=== PATIENT | male | born 1975 | race Caucasian/White ===

== ENCOUNTER 2020-06-24 10:01 | Observation (INO) ==
[2020-06-24] MEDS ORDERED: Calcium Gluconate 1gm/50mL 1 GM/50 ML BAG IVPB ONE ×2 (10:29→12:22)
[2020-06-24] MEDS ORDERED: Insulin Regular, Human 100 UNIT/ML SUBQ ONE (10:30)
[2020-06-24] MEDS ORDERED: Albuterol Neb 7.5 MG, Sodium Chloride for inhalation 12 ML IH ONE (10:30)
[2020-06-24] MEDS ORDERED: *HR* Dextrose 50 % in Water (Vial) 50 ML VIAL IVP ONE (10:45)
[2020-06-24 11:03] LABS: Basophils % 0.3 %; Eosinophils # 0.1 K/mcL (0.0-0.6); Eosinophils % 3.5 %; Hematocrit 28.2 % (37.5-50.1); Hemoglobin 9.4 g/dL (12.9-16.9); Immature Granulocytes % 0.3 % (0-4); Lymphocytes # 0.8 K/mcL (0.6-4.6); Lymphocytes % 26.8 %; Mean Corpuscular HGB Conc 33.3 g/dL (31.6-35.5); Mean Corpuscular Hemoglobin 30.5 pg (28.0-33.3); Mean Corpuscular Volume 91.6 fL (83.0-100.0); Monocytes # 0.2 K/mcL (0.0-1.3); Platelet Count 141 K/mcL (140-400); Red Blood Count 3.08 M/mcL (4.19-5.50); Red Cell Distribution Width 12.7 % (11.5-14.5); Segmented Neutrophils % 62.1 %; White Blood Count 3.1 K/mcL (4.3-11.1)
[2020-06-24 11:16] LABS: Prothrombin Time 11.5 Seconds (9.4-12.1)
[2020-06-24 11:19] LABS: Activated Partial Thrombo Time 35.9 Seconds (26.0-36.0)
[2020-06-24 11:24] LABS: Alanine Aminotransferase 11 Units/L (7-52); Albumin 3.9 g/dL (3.5-5.7); Albumin/Globulin Ratio 1.5 (1.1-2.2); Alkaline Phosphatase 64 Units/L (34-104); Aspartate Amino Transferase 11 Units/L (13-39); BUN/Creatinine Ratio 12 (6-26); Bilirubin,Direct 0.1 mg/dL (0.0-0.2); Bilirubin,Indirect 0.6 mg/dL (0.0-1.0); Bilirubin,Total 0.7 mg/dL (0.3-1.0); Blood Urea Nitrogen 34 mg/dL (6-20); Calcium 8.2 mg/dL (8.6-10.3); Carbon Dioxide 17 mEq/L (23-29); Chloride 115 mEq/L (98-107); Globulin 2.6 g/dL (2.4-3.5); Glucose 132 mg/dL (70-105); Magnesium 1.7 mg/dL (1.6-2.6); Osmolality,Calculated 289 (280-300); Potassium 6.4 mEq/L (3.5-5.1); Sodium 135 mEq/L (136-145); Total Protein 6.5 g/dL (6.4-8.9); Troponin I < 0.03 ng/mL (< 0.04); eGFR For African Americans 30 (> 60); eGFR For Non-African Americans 25 (> 60)
[2020-06-24] MEDS ORDERED: 0.9 % Sodium Chloride 1,000 ML IVC ONE ×2 (11:35→13:29)
[2020-06-24] MEDS ORDERED: Sodium Bicarbonate 150 MEQ in Water for inj. (sterile) 1,000 ML IVC SCH (12:05)
[2020-06-24] MEDS ORDERED: SODIUM ZIRCONIUM CYCLOSILICATE 5 GM POWD.PACK PO ONE (12:09)
[2020-06-24 12:13] LABS: Bacteria,Urine Few per hpf (None-Few); Bilirubin,Urine Negative (Negative); Blood,Urine Small (Negative); Clarity,Urine Clear (Clear); Color,Urine Light-Yellow (Yellow); Glucose,Urine (UA) 300 mg/dL (Normal); Hyaline Casts,Urine Few per lpf (None Seen); Ketones,Urine Negative (Negative); Leukocyte Esterase,Urine Negative (Negative); Nitrite,Urine Negative (Negative); Protein,Urine 100 mg/dL (Neg-Trace); RBC,Urine 0-3 per hpf (0-3); Specific Gravity,Urine 1.016 (1.010-1.025); Squamous Epithelial Cell,Urine Few per hpf (None-Few); Urobilinogen,Urine Normal (Normal); WBC,Urine 0-3 per hpf (0-3)
[2020-06-24] MEDS ORDERED: Furosemide 40 MG/4 ML VIAL IVP ONE (12:22)
[2020-06-24 12:55] LABS: Potassium 4.7 mEq/L (3.5-5.1)
[2020-06-24] MEDS ORDERED: Melatonin 3 MG TABLET PO PRN (13:03)
[2020-06-24] MEDS ORDERED: Ondansetron 4 MG/2 ML VIAL IVP PRN (13:03)
[2020-06-24] MEDS ORDERED: Acetaminophen 325 MG TABLET PO PRN (13:03)
[2020-06-24 14:04] LABS: Phosphorous 2.6 mg/dL (2.7-4.5); Uric Acid 6.3 mg/dL (2.3-7.6)
[2020-06-24] MEDS: amLODIPine 5 MG TABLET PO SCH (16:18)
[2020-06-24 16:49] LABS: Calcium 8.1 mg/dL (8.6-10.3); Potassium 4.8 mEq/L (3.5-5.1)
[2020-06-24 17:39] LABS: Sodium, Urine 104.6 mEq/L
[2020-06-25 01:22] LABS: Hematocrit 24.2 % (37.5-50.1); Hemoglobin 8.3 g/dL (12.9-16.9); Mean Corpuscular HGB Conc 34.3 g/dL (31.6-35.5); Mean Corpuscular Hemoglobin 31.3 pg (28.0-33.3); Mean Corpuscular Volume 91.3 fL (83.0-100.0); Mean Platelet Volume 10.2 fL (9.4-12.4); Platelet Count 123 K/mcL (140-400); Red Blood Count 2.65 M/mcL (4.19-5.50); Red Cell Distribution Width 12.9 % (11.5-14.5); White Blood Count 2.9 K/mcL (4.3-11.1)
[2020-06-25 01:44] LABS: Albumin 3.5 g/dL (3.5-5.7); Albumin/Globulin Ratio 1.6 (1.1-2.2); Bilirubin,Total 0.7 mg/dL (0.3-1.0); Calcium 7.7 mg/dL (8.6-10.3); Globulin 2.2 g/dL (2.4-3.5); Magnesium 1.4 mg/dL (1.6-2.6); Potassium 4.5 mEq/L (3.5-5.1); Total Protein 5.7 g/dL (6.4-8.9)
[2020-06-25] MEDS: 0.9 % Sodium Chloride 1,000 ML IVC SCH ×2 (09:00→20:02)
[2020-06-25] MEDS: amLODIPine 5 MG TABLET PO SCH (09:00)
[2020-06-26 06:11] LABS: Basophils % 0.7 %; Eosinophils # 0.1 K/mcL (0.0-0.6); Eosinophils % 3.3 %; Hematocrit 24.8 % (37.5-50.1); Hemoglobin 8.4 g/dL (12.9-16.9); Immature Granulocytes % 0.3 % (0-4); Lymphocytes % 33.6 %; Mean Corpuscular HGB Conc 33.9 g/dL (31.6-35.5); Mean Corpuscular Hemoglobin 30.8 pg (28.0-33.3); Mean Corpuscular Volume 90.8 fL (83.0-100.0); Mean Platelet Volume 10.1 fL (9.4-12.4); Monocytes # 0.3 K/mcL (0.0-1.3); Monocytes % 8.1 %; Neutrophils # 1.7 K/mcL (1.6-8.9); Platelet Count 135 K/mcL (140-400); Red Blood Count 2.73 M/mcL (4.19-5.50); Red Cell Distribution Width 12.6 % (11.5-14.5); White Blood Count 3.1 K/mcL (4.3-11.1)
[2020-06-26 06:29] LABS: Potassium 5.2 mEq/L (3.5-5.1)
[2020-06-26] MEDS: amLODIPine 5 MG TABLET PO SCH (08:19)
[2020-06-26 12:21] LABS: % Iron Saturation 23 % (20-55); Iron 59 mcg/dL (65-175); Transferrin 185 mg/dL (203-362)
[2020-06-26 12:39] LABS: Ferritin 184 ng/mL (20-250)
[2020-06-26] MEDS: *HR* Heparin 5,000 UNIT/ML VIAL SQ SCH ×2 (12:46→21:03)
[2020-06-26] MEDS: Metoprolol XL (24 HR) Succ 25 MG TAB.ER.24H PO SCH (16:12)
[2020-06-27 05:07] LABS: Basophils % 0.6 %; Eosinophils # 0.2 K/mcL (0.0-0.6); Eosinophils % 4.5 %; Hematocrit 26.6 % (37.5-50.1); Hemoglobin 9.3 g/dL (12.9-16.9); Immature Granulocytes % 0.3 % (0-4); Lymphocytes # 0.9 K/mcL (0.6-4.6); Lymphocytes % 26.2 %; Mean Corpuscular Hemoglobin 31.7 pg (28.0-33.3); Mean Corpuscular Volume 90.8 fL (83.0-100.0); Monocytes # 0.3 K/mcL (0.0-1.3); Monocytes % 7.8 %; Platelet Count 141 K/mcL (140-400); Red Blood Count 2.93 M/mcL (4.19-5.50); Red Cell Distribution Width 12.5 % (11.5-14.5); Segmented Neutrophils % 60.6 %; White Blood Count 3.3 K/mcL (4.3-11.1)
[2020-06-27 05:37] LABS: Calcium 8.6 mg/dL (8.6-10.3)
[2020-06-27 07:04] VITALS: BP 180/95
[2020-06-27] MEDS: *HR* Heparin 5,000 UNIT/ML VIAL SQ SCH (07:08)
[2020-06-27] MEDS: Metoprolol XL (24 HR) Succ 25 MG TAB.ER.24H PO SCH (08:24)
[2020-06-27] MEDS: amLODIPine 5 MG TABLET PO SCH (08:24)
[2020-06-27] MEDS: carvediloL 6.25 MG TABLET PO SCH (10:13)
[2020-06-27 11:19] LABS: Protein/Creatinine Ratio,Urine 1.45 mg/mg (0.00-0.20)
== END 2020-06-27 10:35 | disposition home or self-care (01) ==
LOC: 2NNU 10:01 → EMEROOARM 10:01 → 2NNU 15:49 → 2ANU 06-25 16:20
PROVIDERS: ADMIT Internal Medicine; ATTEND Internal Medicine

== ENCOUNTER 2020-09-13 18:59 | Inpatient (IN) ==
[2020-09-13] MEDS ORDERED: Ipratropium/Albuterol Neb 3 ML IH ONE (19:17)
[2020-09-13 19:37] LABS: Basophils % 0.4 %; Hematocrit 20.4 % (37.5-50.1); Hemoglobin 6.8 g/dL (12.9-16.9); Immature Granulocytes % 0.4 % (0-4); Lymphocytes # 0.4 K/mcL (0.6-4.6); Lymphocytes % 14.7 %; Mean Corpuscular HGB Conc 33.3 g/dL (31.6-35.5); Mean Corpuscular Hemoglobin 30.9 pg (28.0-33.3); Mean Corpuscular Volume 92.7 fL (83.0-100.0); Mean Platelet Volume 10.2 fL (9.4-12.4); Monocytes # 0.2 K/mcL (0.0-1.3); Monocytes % 7.9 %; Platelet Count 111 K/mcL (140-400); Red Cell Distribution Width 12.7 % (11.5-14.5); Segmented Neutrophils % 76.6 %; White Blood Count 2.7 K/mcL (4.3-11.1)
[2020-09-13 19:59] LABS: Albumin 3.9 g/dL (3.5-5.7); Albumin/Globulin Ratio 1.3 (1.1-2.2); Bilirubin,Direct 0.2 mg/dL (0.0-0.2); Bilirubin,Indirect 0.9 mg/dL (0.0-1.0); Bilirubin,Total 1.1 mg/dL (0.3-1.0); Calcium 8.3 mg/dL (8.6-10.3); Globulin 2.9 g/dL (2.4-3.5); Potassium 4.3 mEq/L (3.5-5.1); Total Protein 6.8 g/dL (6.4-8.9)
[2020-09-13 20:03] LABS: Troponin I 0.29 ng/mL (< 0.04)
[2020-09-13] MEDS ORDERED: Aspirin 81 MG TAB.CHEW PO STA (20:10)
[2020-09-13] MEDS ORDERED: Furosemide 20 MG/2 ML VIAL IVP ONE (20:14)
[2020-09-13] MEDS ORDERED: Ondansetron 4 MG/2 ML VIAL IVP PRN (21:29)
[2020-09-13] MEDS ORDERED: Naloxone 0.4 MG/ML INJ IVP PRN (21:29)
[2020-09-13] MEDS ORDERED: Acetaminophen 325 MG TABLET PO PRN (21:29)
[2020-09-13] MEDS ORDERED: Perflutren Lipid Microsphere 1.3 ML in 0.9 % Sodium Chloride 8.7 ML IVP PRN (21:32)
[2020-09-13 21:41] LABS: Adenovirus Not Detected (Not Detect); Bordetella Pertussis Not Detected (Not Detect); Chlamydophila pneumoniae Not Detected (Not Detect); Coronavirus 229E Not Detected (Not Detect); Coronavirus HKU1 Not Detected (Not Detect); Coronavirus NL63 Not Detected (Not Detect); Coronavirus OC43 Not Detected (Not Detect); Human Metapneumovirus Not Detected (Not Detect); Human Rhinovirus/Enterovirus Not Detected (Not Detect); Influenza A Subtype 2009 H1 Not Detected (Not Detect); Influenza B Not Detected (Not Detect); Mycoplasma pneumoniae Not Detected (Not Detect); Parainfluenza Virus 1 Not Detected (Not Detect); Parainfluenza Virus 2 Not Detected (Not Detect); Parainfluenza Virus 3 DETECTED (Not Detect); Parainfluenza Virus 4 Not Detected (Not Detect); Respiratory Syncytial Virus Not Detected (Not Detect); SARS-CoV-2 Not Detected (Not Detect)
[2020-09-13] MEDS ORDERED: Ipratropium/Albuterol Neb 3 ML IH PRN (22:02)
[2020-09-13] MEDS ORDERED: Dextrose Gel 15 GM/37.5 ML TUBE PO PRN ×2 (22:07)
[2020-09-13] MEDS ORDERED: *HR* Dextrose 50 % in Water (Vial) 50 ML VIAL IVP PRN (22:07)
[2020-09-13] MEDS ORDERED: D5% in Water 1,000 ML IVC PRN (22:07)
[2020-09-13] MEDS ORDERED: 0.9 % Sodium Chloride 250 ML ONE (22:41)
[2020-09-13] MEDS: Insulin LISPRO 300 UNITS/3 ML VIAL SUBQ SCH (23:17)
[2020-09-13] MEDS: Azithromycin 500 MG in 0.9 % Sodium Chloride 250 ML IVPB SCH (23:18)
[2020-09-13] MEDS: cefTRIAXone 1,000 MG in 0.9 % Sodium Chloride Mini Bag 100 ML IVPB SCH (23:18)
[2020-09-13] MEDS: carvediloL 6.25 MG TABLET PO SCH (23:44)
[2020-09-13] MEDS: amLODIPine 5 MG TABLET PO SCH (23:44)
[2020-09-14 00:20] LABS: Potassium,Urine 25.2 mEq/L; Sodium, Urine 88.9 mEq/L
[2020-09-14 00:29] LABS: Bacteria,Urine Few per hpf (None-Few); Bilirubin,Urine Negative (Negative); Blood,Urine Small (Negative); Clarity,Urine Clear (Clear); Color,Urine Colorless (Yellow); Glucose,Urine (UA) 50 mg/dL (Normal); Hyaline Casts,Urine Few per lpf (None Seen); Ketones,Urine Negative (Negative); Leukocyte Esterase,Urine Negative (Negative); Mucus,Urine Few per lpf (None-Few); Nitrite,Urine Negative (Negative); Protein,Urine 70 mg/dL (Neg-Trace); RBC,Urine 0-3 per hpf (0-3); Specific Gravity,Urine 1.012 (1.010-1.025); Squamous Epithelial Cell,Urine Few per hpf (None-Few); Urobilinogen,Urine Normal (Normal); WBC,Urine 0-3 per hpf (0-3)
[2020-09-14 04:13] LABS: Calcium 7.9 mg/dL (8.6-10.3); Magnesium 1.7 mg/dL (1.6-2.6); Phosphorous 3.4 mg/dL (2.7-4.5); Potassium 3.7 mEq/L (3.5-5.1)
[2020-09-14 04:15] LABS: Hematocrit 19.4 % (37.5-50.1); Hemoglobin 6.6 g/dL (12.9-16.9); Immature Granulocytes % 0.4 % (0-4); Lymphocytes # 0.6 K/mcL (0.6-4.6); Lymphocytes % 26.8 %; Mean Corpuscular Hemoglobin 31.6 pg (28.0-33.3); Mean Corpuscular Volume 92.8 fL (83.0-100.0); Mean Platelet Volume 10.9 fL (9.4-12.4); Monocytes # 0.2 K/mcL (0.0-1.3); Monocytes % 10.4 %; Neutrophils # 1.4 K/mcL (1.6-8.9); Platelet Count 100 K/mcL (140-400); Red Blood Count 2.09 M/mcL (4.19-5.50); Red Cell Distribution Width 13.2 % (11.5-14.5); Segmented Neutrophils % 62.4 %; White Blood Count 2.3 K/mcL (4.3-11.1)
[2020-09-14 04:18] LABS: INR 1.3; Prothrombin Time 14.6 Seconds (9.4-12.1)
[2020-09-14 04:26] LABS: Thyroid Stimulating Hormone 1.126 mcIU/mL (0.340-5.600)
[2020-09-14] MEDS ORDERED: 0.9 % Sodium Chloride 250 ML ONE (05:26)
[2020-09-14] MEDS ORDERED: *HR* Heparin 5,000 UNIT/ML VIAL SQ SCH (06:00)
[2020-09-14] MEDS: cefTRIAXone 1,000 MG in 0.9 % Sodium Chloride Mini Bag 100 ML IVPB SCH (08:06)
[2020-09-14] MEDS: Azithromycin 500 MG in 0.9 % Sodium Chloride 250 ML IVPB SCH (08:06)
[2020-09-14] MEDS: carvediloL 6.25 MG TABLET PO SCH ×2 (08:07→16:55)
[2020-09-14] MEDS: Insulin LISPRO 300 UNITS/3 ML VIAL SUBQ SCH ×3 (08:07→16:37)
[2020-09-14] MEDS: amLODIPine 5 MG TABLET PO SCH (08:07)
[2020-09-14 10:37] LABS: Hemoglobin 7.7 g/dL (12.9-16.9)
[2020-09-14 11:00] LABS: Troponin I 0.37 ng/mL (< 0.04)
[2020-09-14] MEDS ORDERED: Furosemide 40 MG/4 ML VIAL IVP ONE (12:27)
[2020-09-14 14:19] LABS: Uric Acid 9.9 mg/dL (2.3-7.6)
[2020-09-14 17:54] LABS: Creatinine,Urine 52 mg/dL
[2020-09-15 07:10] LABS: Basophils % 0.4 %; Eosinophils # 0.1 K/mcL (0.0-0.6); Eosinophils % 2.9 %; Hematocrit 24.8 % (37.5-50.1); Hemoglobin 8.4 g/dL (12.9-16.9); Immature Granulocytes % 0.7 % (0-4); Lymphocytes # 0.7 K/mcL (0.6-4.6); Lymphocytes % 24.6 %; Mean Corpuscular HGB Conc 33.9 g/dL (31.6-35.5); Mean Corpuscular Hemoglobin 30.3 pg (28.0-33.3); Mean Corpuscular Volume 89.5 fL (83.0-100.0); Mean Platelet Volume 10.6 fL (9.4-12.4); Monocytes # 0.3 K/mcL (0.0-1.3); Neutrophils # 1.7 K/mcL (1.6-8.9); Platelet Count 125 K/mcL (140-400); Red Blood Count 2.77 M/mcL (4.19-5.50); Red Cell Distribution Width 13.6 % (11.5-14.5); Segmented Neutrophils % 61.4 %; White Blood Count 2.8 K/mcL (4.3-11.1)
[2020-09-15] MEDS: carvediloL 6.25 MG TABLET PO SCH (07:46)
[2020-09-15] MEDS: amLODIPine 5 MG TABLET PO SCH (07:47)
[2020-09-15] MEDS: cefTRIAXone 1,000 MG in 0.9 % Sodium Chloride Mini Bag 100 ML IVPB SCH (07:47)
[2020-09-15] MEDS: Azithromycin 500 MG in 0.9 % Sodium Chloride 250 ML IVPB SCH (07:47)
[2020-09-15] MEDS: Insulin LISPRO 300 UNITS/3 ML VIAL SUBQ SCH ×3 (07:48→17:19)
[2020-09-15 07:54] LABS: Calcium 8.3 mg/dL (8.6-10.3); Potassium 3.6 mEq/L (3.5-5.1)
[2020-09-15] MEDS ORDERED: Furosemide 40 MG/4 ML VIAL IVP ONE (08:37)
[2020-09-15 11:45] LABS: Immature Reticulocyte % 19.3 % (11.0-38.0); Retculocyte # 0.05 M/mcL (0.05-0.10); Reticulocyte % 1.9 % (1.6-2.8)
[2020-09-15] MEDS: Aspirin Enteric Coated 81 MG Tablet PO SCH (12:03)
[2020-09-15 12:17] LABS: Bilirubin,Direct 0.1 mg/dL (0.0-0.2); Bilirubin,Total 1.1 mg/dL (0.3-1.0)
[2020-09-15 12:40] LABS: Folate 7.7 ng/mL (3.0-16.0)
[2020-09-15] MEDS: carvediloL 25 MG TABLET PO SCH (17:19)
[2020-09-16 04:51] LABS: Basophils % 0.4 %; Eosinophils # 0.1 K/mcL (0.0-0.6); Hematocrit 22.7 % (37.5-50.1); Hemoglobin 7.9 g/dL (12.9-16.9); Immature Granulocytes % 1.3 % (0-4); Lymphocytes # 0.7 K/mcL (0.6-4.6); Lymphocytes % 28.9 %; Mean Corpuscular HGB Conc 34.8 g/dL (31.6-35.5); Mean Corpuscular Hemoglobin 30.7 pg (28.0-33.3); Mean Corpuscular Volume 88.3 fL (83.0-100.0); Mean Platelet Volume 10.6 fL (9.4-12.4); Monocytes # 0.2 K/mcL (0.0-1.3); Monocytes % 9.8 %; Neutrophils # 1.3 K/mcL (1.6-8.9); Platelet Count 122 K/mcL (140-400); Red Blood Count 2.57 M/mcL (4.19-5.50); Red Cell Distribution Width 13.4 % (11.5-14.5); Segmented Neutrophils % 53.6 %; White Blood Count 2.4 K/mcL (4.3-11.1)
[2020-09-16 05:06] LABS: Potassium 3.5 mEq/L (3.5-5.1)
[2020-09-16 06:53] VITALS: BP 162/87
[2020-09-16] MEDS: amLODIPine 5 MG TABLET PO SCH (07:49)
[2020-09-16] MEDS: Aspirin Enteric Coated 81 MG Tablet PO SCH (07:53)
[2020-09-16] MEDS: cefTRIAXone 1,000 MG in 0.9 % Sodium Chloride Mini Bag 100 ML IVPB SCH (07:54)
[2020-09-16] MEDS: carvediloL 25 MG TABLET PO SCH (08:01)
[2020-09-16] MEDS: Insulin LISPRO 300 UNITS/3 ML VIAL SUBQ SCH ×2 (08:03→10:42)
[2020-09-16] MEDS ORDERED: Azithromycin 250 MG TABLET PO SCH (09:00)
[2020-09-16] MEDS ORDERED: Ferumoxytol 510 MG in 0.9 % Sodium Chloride 100 ML IVPB ONE (09:50)
[2020-09-16] MEDS ORDERED: Furosemide 40 MG/4 ML VIAL IVP ONE (09:53)
== END 2020-09-16 13:49 | disposition home or self-care (01) | DRG 808 ==
LOC: 2NENU 18:59 → EMEROOARM 18:59 → SUATTDRO 20:40 → 2NENU 21:35
PROVIDERS: ADMIT Internal Medicine; ATTEND Internal Medicine